=== PATIENT | female | born 2000 | race Caucasian/White ===

== ENCOUNTER 2022-11-13 14:11 | Emergency (ER) | payer OTHER ==
[~2022-11-13] VITALS: Ht 157.5 cm; Wt 54.5 kg
[2022-11-13 14:33] VITALS: BP 122/62
[2022-11-13] MEDS ORDERED: ACET-2080 PO (15:59)
[2022-11-13] MEDS ORDERED: IBUP-1554 PO (15:59)
== END 2022-11-13 16:08 | disposition home or self-care (01) ==
LOC: EMS 14:18
DX: S52.502A Unspecified fracture of the lower end of left radius, initial encounter for closed fracture (principal); W19.XXXA Unspecified fall, initial encounter; Y93.23 Activity, snow (alpine) (downhill) skiing, snowboarding, sledding, tobogganing and snow tubing; Y92.89 Other specified places as the place of occurrence of the external cause; Y99.8 Other external cause status
CPT/HCPCS: 99283